=== PATIENT | female | born 1995 | race Hispanic/Latino ===

== ENCOUNTER → 2021-08-20 | Outpatient (CLI) | payer MEDICAID | END | disposition home or self-care (01) | LOC: SHCH 10:13 | PROVIDERS: ATTEND Student in an Organized Health Care Education/Training Program | DX: R00.0 Tachycardia, unspecified (principal); R00.2 Palpitations | CPT/HCPCS: 93306 ==

== ENCOUNTER 2024-03-14 09:44 | Emergency (ER) | payer SELFPAY ==
[~2024-03-14] VITALS: Ht 149.9 cm; Wt 53.5 kg
--- NOTE | 2024-03-14 10:13 | ERN ---
ED Note History of Present Illness Stated Complaint: BODY WEAKNESS Chief Complaint: Generalized Body Aches Time Seen by MD: 10:04 Dictation: PATIENT IS A 28-YEAR-OLD FEMALE COMING IN TODAY WITH GENERALIZED BODY ACHES FLU- LIKE SYMPTOMS TO INCLUDE CHEST PAIN WORSE WHEN SHE COUGHS OR TAKE A DEEP BREATH FOR 3-4 DAYS. SHE STATES HER SHOULDERS HURT ARM SHIRT JOINTS HURT. SHE HAS NO NAUSEA NO VOMITING NO FEVER NO CHILLS NO LOSS OF TASTE OR SMELL. SHE STATES SHE HAS NOT TAKEN ANYTHING FOR THE PAIN SINCE THE ONSET AND DOES NOT HAVE A PRIMARY CARE DOCTOR AND USUALLY USES EMERGENCY ROOMS. PATIENT DOES HAVE A DOCTOR AT [facility] SHE STATES HOWEVER HAS NOT GONE OUT TO SEEN Allergies: Coded Allergies: No Known Drug Allergies (Unverified Allergy, Unknown, 03/14/24) Past Medical History Past Medical History: No Pertinent History Surgical History: LMP: Mar 04, 2024 : 4 Para: 4 Aborts: 0 RN Note Reviewed/Agreed w/PFSH: Yes Review of System Dictation CONSTITUTIONAL: NEGATIVE EXCEPT FOR HPI HEAD/FACE: NEGATIVE EXCEPT FOR HPI EENT: NEGATIVE EXCEPT FOR HPI RESPIRATORY: NEGATIVE EXCEPT FOR HPI CHEST PAIN WORSE WITH COUGH INSPIRATION GASTROINTESTINAL/ABDOMINAL: NEGATIVE EXCEPT FOR HPI GENITOURINARY: NEGATIVE EXCEPT FOR HPI MUSCULOSKELETAL: NEGATIVE EXCEPT FOR HPI MALAISE INTEGUMENTARY: NEGATIVE EXCEPT FOR HPI NEUROLOGICAL/PSYCH: NEGATIVE EXCEPT FOR HPI HEMATOLOGIC/LYMPHATIC: NEGATIVE EXCEPT FOR HPI ALL SYSTEMS NEGATIVE, EXCEPT NOTED ABOVE. 13 POINT REVIEW OF SYSTEMS ASSESSED AND ALL NEGATIVE EXCEPT FOR ABOVE. Initial Vital Sign VS Vital Signs Date Time Temp Pulse Resp B/P (MAP) Pulse Ox O2 Delivery O2 Flow Rate FiO2 03/14/24 09:46 98.6 86 16 121/80 100 Room Air* 0 21 Physical Exam Dictation VITAL SIGNS REVIEWED GENERAL APPEARANCE: ALERT, ORIENTED X 3, MILD ACUTE DISTRESS, WELL DEVELOPED, NOURISHED. HEAD AND FACE: NON-TRAUMATIC. EYES: PERRL, PINK CONJUNCTIVAS, EYELID NO TRAUMA, ANTERIOR CHAMBER WITH ARCUS SENILIS. EARS: PINNAS INTACT AND NO SIGNS OF TRAUMA OR ERYTHEMA EAR CANALS CLEAR AND NO DISCHARGE TM NO ERYTHEMA NOSE: CLEAR DISCHARGE, NO BLEEDING. OROPHARYNX: MOUTH NORMAL, TONGUE PINK, PHARYNX CLEAR,NO ERYTHEMA, TONSILS NO EXUDATES, NO ABSCESSES NOTED, MUCOUS MEMBRANE MOIST NECK: SUPPLE, NON-TENDER, NO THYROMEGALY, NO MASSES, NO JVD, NO BRUITS BREAST:DEFERRED CHEST:NO TENDERNESS, NO CREPITUS, NO PARADOXICAL MOVEMENT, NO RETRACTIONS LUNGS:CLEAR, WELL-VENTILATED, SYMMETRIC, NO RALES, NO WHEEZING, NO RHONCHI, NO STRIDOR, GOOD BREATH SOUNDS BILATERALLY HEART: REGULAR RATE, REGULAR RHYTHM, NO MURMUR, NO GALLOPS VASCULAR: NO PERIPHERAL EDEMA, ABDOMEN: SOFT, POSITIVE BOWEL SOUNDS, NONDISTENDED, NO GUARDING, NONTENDER, NO REBOUND, NO MASSES NO HEPATOMEGALY, NO SPLENOMEGALY, NO BERNAL'S SIGN, NO HERNIAS. RECTAL: DEFERRED GENITAL: DEFERRED NEUROLOGICAL: NORMAL SPEECH, MOTOR FUNCTION INTACT, SENSORY FUNCTION INTACT MUSCULOSKELETAL: NECK NONTENDER, FULL RANGE OF MOTION, BACK NONTENDER, FULL RANGE OF MOTION, EXTREMITIES: NONTENDER, FULL RANGE OF MOTION SKIN: COLOR PINK, DRY, NO TURGOR, NO RASH, NO LACERATIONS, NO ABRASIONS, NO CONTUSIONS. LYMPHATIC: DEFERRED Results (Laboratory/Radiology) Laboratory/Radiology Laboratory Tests Test 03/14/24 09:42 Influenza Type A Antigen Negative For Type A Influenza Type B Antigen Negative For Type B SARS-CoV-2 Antigen (Rapid) PRESUMPTIVE NEGATIVE Labs Reviewed?: Yes ED Course ED Course Orders Procedure Category Date Status Time Influenza Type A & B, LAB 03/14/24 Complete Rapid 09:51 Covid19 (Sars Antigen LAB 03/14/24 Complete Rapid) 09:51 Ibuprofen 600 Mg PHA 03/14/24 Complete Tablet (Motrin) 10:30 Dexamethasone 4mg/Ml PHA 03/14/24 Complete 1ml Vial (Dexametha 10:30 Current Medications Medications (Trade) Dose Ordered Sig/Glen Route PRN Reason Start Time Stop Time Status Last Admin Dose Admin Dexamethasone Sodium Phosphate (dexaMETHasone 4MG/ML 1ML VIAL) 8 mg ONCE ONCE IM 03/14/24 10:30 03/14/24 10:31 DC 03/14/24 10:32 Ibuprofen (moTRIN) 600 mg ONCE ONCE PO 03/14/24 10:30 03/14/24 10:31 DC 03/14/24 10:32 Vital Signs Date Time Temp Pulse Resp B/P (MAP) Pulse Ox O2 Delivery O2 Flow Rate FiO2 03/14/24 09:46 98.6 86 16 121/80 100 N/C High Flow System 0 03/14/24 09:46 98.6 86 16 121/80 100 Room Air* 0 21 1048/PATIENT STATES IMPROVEMENT AFTER TREATMENT WITH NONSTEROIDAL AND DECADRON IM. WE WILL DISCHARGE PATIENT HOME WITH ALBUTEROL, IBUPROFEN AND MEDROL DOSEPAK TOLD HER TO FOLLOW UP WITH ONE OF THE DOCTORS UNLESS PROVIDER NEXT 2-3 DAYS. Medical Decision Making MDM MEDICAL DECISION-MAKING BASED ON SWABS FOR INFLUENZA AND COVID ONLY. PATIENT TREATED EMPIRICALLY FOR COSTOCHONDRITIS AND COUGH. DISCHARGED HOME WITH ALBUTEROL, MEDROL DOSEPAK, IBUPROFEN AND A LIST OF DOCTORS. DX & DISP Disposition: Discharge Departure Impression: Primary Impression: Viral URI with cough Additional Impression: Acute costochondritis Condition: Stable Scripts Albuterol Sulfate (Ventolin Hfa/Proventil Hfa/Proair Hfa) 90 Mcg Puff 2 PUFF IH Q4H for WHEEZING, #1 INHALER 0 Refills Prov: GEORGI MIN NP 03/14/24 Ibuprofen (Ibuprofen) 600 Mg Tablet 600 MG PO Q6H PRN for PAIN, #30 TAB Prov: GEORGI MIN NP 03/14/24 Methylprednisolone (Medrol) 4 Mg Tab.ds.pk 1 TAB PO AD for 6 Days, #21 TAB 0 Refills 6 on day 1 then reduce by one tablet daily until gone Prov: GEORGI MIN NP 03/14/24 Additional Instructions: FOLLOW-UP WITH PRIMARY CARE PROVIDER IN 1 TO 2 DAYS. TAKE MEDICATIONS DIRECTED HERE IN THE EMERGENCY ROOM. OKAY TO CONTINUE HOME MEDICATIONS UNLESS OTHERWISE DISCUSSED DURING YOUR VISIT IN THE EMERGENCY ROOM TODAY. RETURN TO YOUR NEAREST EMERGENCY ROOM IF SYMPTOMS WORSEN OR IF THERE IS NO IMPROVEMENT. CALL 911 IF YOU NEED IMMEDIATE ASSISTANCE. TAKE TYLENOL OR MOTRIN [id number] NEEDED AND IF NO CONTRAINDICATIONS ARE PRESENT. INCREASE ORAL HYDRATION. A WOUND CULTURE OR URINE CULTURE WAS ORDERED HERE IN THE EMERGENCY ROOM DEPARTMENT PLEASE FOLLOW-UP WITH PRIMARY CARE PROVIDER AND ADVISE THEM TO GET REPEAT PORTS FROM OUR FACILITY. IF YOU HAD ANY CHERYL WRAP/SPLINTS THAT WERE APPLIED HERE, PLEASE DO NOT REMOVE THEM UNTIL YOU SEE YOUR PRIMARY CARE OR SPECIALTY. USE ALBUTEROL INHALER EVERY4 HOURS WHILE AWAKE FOR THE NEXT TWO DAYS. TAKE IBUPROFEN WITH FOOD EVERY8 HOURS FOR THE NEXT THREE DAYS. TAKE MEDROL DOSEPAK DIRECTED UNTIL GONE AND SEE ONE OF THE DOCTORS ON THE LIST PROVIDED YOU IN THE NEXT 2-3 DAYS FOR MANAGEMENT Referrals: JJ LINDO MD (PCP) Time of Disposition: 10:50 I have reviewed the case, and I agree with, Diagnosis and Plan GEORGI MIN NP Mar 14, 2024 10:13
[2024-03-14 10:23] LABS: COVID19 (SARS ANTIGEN RAPID) PRESUMPTIVE NEGATIVE (NEGATIVE); INFLUENZA TYPE A Negative For Type A (NEGATIVE); INFLUENZA TYPE B Negative For Type B (NEGATIVE)
[2024-03-14] MEDS: dexaMETHasone SOD PHOSPHATE 4 MG/ML 1ML VIAL IM ONE (10:32)
[2024-03-14] MEDS: ibuPROFEN 600 MG TABLET PO ONE (10:32)
[2024-03-14] MEDS ORDERED: ALBUHFA IH (10:51)
[2024-03-14] MEDS ORDERED: METH4TAB3 PO (10:51)
[2024-03-14] MEDS ORDERED: IBUP-2070 PO (10:51)
[2024-03-14 11:36] VITALS: BP 122/83; PULSE 92; RESP 20; TEMP 98.7; O2SAT 99
== END 2024-03-14 11:39 | disposition home or self-care (01) ==
LOC: EDH 09:44
DX: J06.9 Acute upper respiratory infection, unspecified (principal); B97.89 Other viral agents as the cause of diseases classified elsewhere; M94.0 Chondrocostal junction syndrome [Tietze]; Z20.822 Contact with and (suspected) exposure to COVID-19; Z98.890 Other specified postprocedural states
CPT/HCPCS: 99283; 87426; 87804 ×2; 96372; J1100

== ENCOUNTER 2024-11-28 14:42 | Emergency (ER) | payer SELFPAY ==
[~2024-11-28] VITALS: Ht 149.9 cm; Wt 54.4 kg
[~2024-11-28 14:42] MED LIST: ALBUHFA IH; IBUP-1492 PO; METH4TAB3 PO
--- NOTE | 2024-11-28 14:51 | ERN ---
ED Note History of Present Illness Stated Complaint: MULTIPLE COMPLAINTS Chief Complaint: Multiple Complaints Time Seen by MD: 14:46 Dictation: PATIENT IS A 28-YEAR-OLD FEMALE HERE WITH MULTIPLE COMPLAINTS. INITIALLY HER COMPLAINT WAS SHE WAS HAVING NAUSEA WITH SOME VOMITING ONSET THIS MONDAY. NO ABDOMINAL PAIN NO HEADACHE NO RUNNY NOSE NO COUGH. SHE STATES SHE ALSO FEELS LIGHTHEADED AND WEAK. STATES SHE JUST FINISHED HER. SAID SHE DOES NOT THINK SHE IS . NO PRIMARY CARE DOCTOR STATES SHE ONLY USES EMERGENCY ROOMS FOR HER HEALTH CARE. NO FEVER AT THIS TIME. NIH IS 0 ON APPROACH Allergies: Coded Allergies: No Known Drug Allergies (Unverified Allergy, Unknown, 03/14/24) Home Meds Active Scripts Albuterol Sulfate (Ventolin Hfa/Proventil Hfa/Proair Hfa) 90 Mcg Puff, 2 PUFF IH Q4H for WHEEZING, #1 INHALER 0 Refills Prov:GEORGI MIN NP 03/14/24 Ibuprofen (Ibuprofen) 600 Mg Tablet, 600 MG PO Q6H PRN for PAIN, #30 TAB Prov:GEORGI MIN NP 03/14/24 Methylprednisolone (Medrol) 4 Mg Tab.ds.pk, 1 TAB PO AD for 6 Days, #21 TAB 0 Refills 6 on day 1 then reduce by one tablet daily until gone Prov:GEORGI MIN NP 03/14/24 Past Medical History Past Medical History: No Pertinent History Surgical History: : 4 Para: 4 Aborts: 0 RN Note Reviewed/Agreed w/PFSH: Yes Review of System Dictation CONSTITUTIONAL: NEGATIVE EXCEPT FOR HPI LIGHTHEADED/WEEK HEAD/FACE: NEGATIVE EXCEPT FOR HPI EENT: NEGATIVE EXCEPT FOR HPI RESPIRATORY: NEGATIVE EXCEPT FOR HPI GASTROINTESTINAL/ABDOMINAL: NEGATIVE EXCEPT FOR HPI NAUSEA VOMITING GENITOURINARY: NEGATIVE EXCEPT FOR HPI MUSCULOSKELETAL: NEGATIVE EXCEPT FOR HPI INTEGUMENTARY: NEGATIVE EXCEPT FOR HPI NEUROLOGICAL/PSYCH: NEGATIVE EXCEPT FOR HPI HEMATOLOGIC/LYMPHATIC: NEGATIVE EXCEPT FOR HPI ALL SYSTEMS NEGATIVE, EXCEPT NOTED ABOVE. 13 POINT REVIEW OF SYSTEMS ASSESSED AND ALL NEGATIVE EXCEPT FOR ABOVE. Initial Vital Sign VS Vital Signs Date Time Temp Pulse Resp B/P (MAP) Pulse Ox O2 Delivery O2 Flow Rate FiO2 11/28/24 14:46 98.6 85 16 114/65 98 Room Air 0 11/28/24 15:02 21 Physical Exam Dictation VITAL SIGNS REVIEWED GENERAL APPEARANCE: ALERT, ORIENTED X 3, NO ACUTE DISTRESS, WELL DEVELOPED, NOURISHED. HEAD AND FACE: NON-TRAUMATIC. EYES: PERRL, PINK CONJUNCTIVAS, EYELID NO TRAUMA, ANTERIOR CHAMBER WITH ARCUS SENILIS. EARS: PINNAS INTACT AND NO SIGNS OF TRAUMA OR ERYTHEMA EAR CANALS CLEAR AND NO DISCHARGE TM NO ERYTHEMA NOSE: NO DISCHARGE, NO BLEEDING. OROPHARYNX: MOUTH NORMAL, TONGUE PINK, PHARYNX CLEAR,NO ERYTHEMA, TONSILS NO EXUDATES, NO ABSCESSES NOTED, MUCOUS MEMBRANE MOIST NECK: SUPPLE, NON-TENDER, NO THYROMEGALY, NO MASSES, NO JVD, NO BRUITS BREAST:DEFERRED CHEST:NO TENDERNESS, NO CREPITUS, NO PARADOXICAL MOVEMENT, NO RETRACTIONS LUNGS:CLEAR, WELL-VENTILATED, SYMMETRIC, NO RALES, NO WHEEZING, NO RHONCHI, NO STRIDOR, GOOD BREATH SOUNDS BILATERALLY HEART: REGULAR RATE, REGULAR RHYTHM, NO MURMUR, NO GALLOPS VASCULAR: NO PERIPHERAL EDEMA, ABDOMEN: SOFT, POSITIVE BOWEL SOUNDS, NONDISTENDED, NO GUARDING, NONTENDER, NO REBOUND, NO MASSES NO HEPATOMEGALY, NO SPLENOMEGALY, NO BERNAL'S S IGN, NO HERNIAS. NO FOCAL PAIN RECTAL: DEFERRED GENITAL: DEFERRED NEUROLOGICAL: NORMAL SPEECH, MOTOR FUNCTION INTACT, SENSORY FUNCTION INTACT MUSCULOSKELETAL: NECK NONTENDER, FULL RANGE OF MOTION, BACK NONTENDER, FULL RANGE OF MOTION, EXTREMITIES: NONTENDER, FULL RANGE OF MOTION SKIN: COLOR PINK, DRY, NO TURGOR, NO RASH, NO LACERATIONS, NO ABRASIONS, NO CONTUSIONS. LYMPHATIC: DEFERRED Results (Laboratory/Radiology) Laboratory/Radiology Laboratory Tests Test 11/28/24 14:10 11/28/24 15:06 Urine Color COLORLESS (YELLOW) Urine Appearance CLEAR (CLEAR) Urine pH 7.0 (5.0-8.0) Urine Specific Danese 1.003 (1.001-1.031) Urine Protein NEGATIVE mg/dL (NEGATIVE) Urine Glucose (UA) NEGATIVE mg/dL (NEGATIVE) Urine Ketones NEGATIVE mg/dL (NEGATIVE) Urine Occult Blood NEGATIVE (NEGATIVE) Urine Nitrate NEGATIVE (NEGATIVE) Urine Bilirubin NEGATIVE mg/dL (NEGATIVE) Urine Urobilinogen 0.2 mg/dL (0.2-1.0) Urine Leukocyte Esterase NEGATIVE Evert/uL White Blood Count 8.0 K/uL (4.8-10.8) Red Blood Count 4.41 MIL/uL (4.00-5.50) Hemoglobin 14.1 g/dL (12.0-16.0) Hematocrit 40.5 % (36-48) Mean Corpuscular Volume 91.8 fL (79-99) Mean Corpuscular Hemoglobin 32.0 pg (27.0-33.0) Mean Corpuscular Hemoglobin Concent 34.8 g/dL (32.0-36.0) Red Cell Distribution Width 12.0 % (11.0-15.5) Platelet Count 265 K/uL (130-400) Mean Platelet Volume 10.4 fL (7.5-10.5) Immature Granulocyte % (Auto) 0.2 % (0-1) Neutrophils (%) (Auto) 63.2 % (40.0-77.0) Lymphocytes (%) (Auto) 25.1 % (21.0-51.0) Monocytes (%) (Auto) 10.1 % (3.0-13.0) Eosinophils (%) (Auto) 0.9 % (0.0-8.0) Basophils (%) (Auto) 0.5 % (0.0-5.0) Neutrophils # (Auto) 5.1 K/uL (1.8-7.7) Lymphocytes # (Auto) 2.0 K/uL (1.0-4.8) Monocytes # (Auto) 0.8 K/uL (0.1-1.0) Eosinophils # (Auto) 0.07 K/uL (0.00-0.70) Basophils # (Auto) 0.04 K/uL (0.00-0.20) Absolute Immature Granulocyte (auto 0.02 K/uL (0-1) Nucleated Red Blood Cells 0.0 % (0.0-0.19) Sodium Level 137 mmol/L (136-145) Potassium Level 4.0 mmol/L (3.5-5.1) Chloride Level 101 mmol/L (101-111) Carbon Dioxide Level 31 mmol/L (21-32) Blood Urea Nitrogen 11 mg/dL (7-18) Creatinine 0.7 mg/dL (0.5-1.0) Glomerular Filtration Rate Calc 121 mL/min (>90) Random Glucose 103 mg/dL (70-105) Total Calcium 9.6 mg/dL (8.5-10.1) Serum Test, Qualitative NEGATIVE (NEGATIVE) Labs Reviewed?: Yes ED Course ED Course Orders Procedure Category Date Status Time Testing, LAB 11/28/24 Complete Serum Hcg 14:48 Cbc With Differential LAB 11/28/24 Complete 14:48 Urinalysis Profile LAB 11/28/24 Complete 14:48 Basic Metabolic Panel LAB 11/28/24 Complete 14:48 Ondansetron Odt 4mg PHA 11/28/24 In Process Tab (Zofran 4mg Odt) 14:51 Current Medications Medications (Trade) Dose Ordered Sig/Glen Route PRN Reason Start Time Stop Time Status Last Admin Dose Admin Ondansetron HCl (zoFRAN 4MG ODT) 4 mg ONCE SL 11/28/24 14:51 11/28/24 19:00 11/28/24 15:07 Vital Signs Date Time Temp Pulse Resp B/P (MAP) Pulse Ox O2 Delivery O2 Flow Rate FiO2 11/28/24 15:02 98.6 85 16 114/65 98 Room Air* 0 21 11/28/24 14:46 98.6 85 16 114/65 98 Room Air 0 1645/LABS ARE COMPLETELY NEGATIVE NO NO ELECTROLYTE IMBALANCE NO DEHYDRATION. PATIENT WILL BE DISCHARGED HOME FOLLOW UP WITH HER PRIMARY CARE DOCTOR AND GIVEN A LIST OF DOCTORS ON STAFF. Medical Decision Making MDM MEDICAL DECISION-MAKING BASED ON BASIC LABS TO INCLUDE TEST. ALL LABS ARE NEGATIVE AND NORMAL PATIENT DISCHARGED HOME WITH DIAGNOSIS OF ANXIETY TOLD FOLLOW UP WITH HER PRIMARY CARE DOCTOR AND GIVEN A LIST OF DOCTORS ON STAFF DX & DISP Disposition: Discharge Departure Impression: Primary Impression: Anxiety reaction Condition: Stable Additional Instructions: FOLLOW-UP WITH PRIMARY CARE PROVIDER IN 1 TO 2 DAYS. TAKE MEDICATIONS DIRECTED HERE IN THE EMERGENCY ROOM. OKAY TO CONTINUE HOME MEDICATIONS UNLESS OTHERWISE DISCUSSED DURING YOUR VISIT IN THE EMERGENCY ROOM TODAY. RETURN TO YOUR NEAREST EMERGENCY ROOM IF SYMPTOMS WORSEN OR IF THERE IS NO IMPROVEMENT. CALL 911 IF YOU NEED IMMEDIATE ASSISTANCE. TAKE TYLENOL OR MOTRIN [id number] NEEDED AND IF NO CONTRAINDICATIONS ARE PRESENT. INCREASE ORAL HYDRATION. A WOUND CULTURE OR URINE CULTURE WAS ORDERED HERE IN THE EMERGENCY ROOM DEPARTMENT PLEASE FOLLOW-UP WITH PRIMARY CARE PROVIDER AND ADVISE THEM TO GET REPEAT PORTS FROM OUR FACILITY. IF YOU HAD ANY CHEYRL WRAP/SPLINTS THAT WERE APPLIED HERE, PLEASE DO NOT REMOVE THEM UNTIL YOU SEE YOUR PRIMARY CARE OR SPECIALTY. FOLLOW UP WITH YOUR PRIMARY CARE DOCTOR IN 1-2 DAYS. Referrals: SELF,REFERRAL (PCP) Time of Disposition: 16:48 I have reviewed the case, and I agree with, Diagnosis and Plan GEORGI MIN [employer] INSUR[employer] AGENT Nov 28, 2024 14:51
[2024-11-28 15:03] LABS: APPEARANCE,URINE CLEAR (CLEAR); GLUCOSE, URINE (UA) NEGATIVE (NEGATIVE); LEUKOCYTE ESTERASE ,URINE NEGATIVE Leu/uL (NEGATIVE); NITRATE,URINE NEGATIVE (NEGATIVE); OCCULT BLOOD,URINE NEGATIVE (NEGATIVE)
[2024-11-28 15:04] LABS: ADD UA MICROSCOPIC NO
[2024-11-28 15:14] LABS: IMMATURE GRANULOCYTE ABSOLUTE 0.02 K/uL (0-1); NUCLEATED RED BLOOD CELLS 0.0 % (0.0-0.19); PLATELET COUNT (AUTO) 265 K/uL (130-400); RED BLOOD CELL COUNT(AUTO) 4.41 MIL/uL (4.00-5.50); RED CELL DISTRIBUTION WIDTH 12.0 % (11.0-15.5); WHITE BLOOD COUNT (AUTO) 8.0 K/uL (4.8-10.8)
[2024-11-28 15:26] LABS: CREATININE 0.7 mg/dL (0.5-1.0); GLOMERULAR FILTR. RATE CALC 121.0 mL/min (>90); GLUCOSE,RANDOM 103.0 mg/dL (70-105); SODIUM SERUM 137.0 mmol/L (136-145); UREA NITROGEN, BLOOD 11.0 mg/dL (7-18)
--- NOTE | 2024-11-28 17:03 | NUR ---
PER TEXTILE SCREEN PRINTER, GIVE PT ORDER RESULTS
[2024-11-28 17:04] VITALS: BP 117/62; PULSE 80; RESP 16; TEMP 98.6; O2SAT 98
== END 2024-11-28 17:06 | disposition home or self-care (01) ==
LOC: EDH 14:42
DX: F41.1 Generalized anxiety disorder (principal); R11.2 Nausea with vomiting, unspecified; R42 Dizziness and giddiness; R53.1 Weakness; Z98.890 Other specified postprocedural states
CPT/HCPCS: 36415; 80048; 81003; 84703; 85025; 99283